=== PATIENT | female | born 1960 | race Caucasian/White ===

== ENCOUNTER 2017-08-22 06:27 | Day surgery (SDC) | payer OTHER ==
[~2017-08-22 06:27] MED LIST: CEFAZOLIN 2 GM/50 ML (PMX) 50 ML IVPB; SOD CHLORIDE 0.9% 1,000 ML IV
[2017-08-22] MEDS ORDERED: EPHEDrine SULFATE 50 MG/5 ML SYG (07:00)
[2017-08-22 07:18] LABS: HEMOGLOBIN 13.9 g/dl (12.0-16.0); MEAN CORPUSCULAR HEMOGLOBIN 33.1 pg (29.0-33.0); MEAN CORPUSCULAR HGB CONC 35.6 g/dl (32.0-37.0); MEAN CORPUSCULAR VOLUME 92.9 fl (82.0-101.0); MEAN PLATELET VOLUME 10.7 fl (7.4-10.4); PLATELET COUNT 229 10^3/UL (140-415); RED CELL DISTRIBUTION WIDTH 11.9 % (11.5-14.5)
[2017-08-22 07:18] LABS: WHITE BLOOD COUNT 6.3 10^3/ul (4.8-10.8)
[2017-08-22 07:23] LABS: ADD MAN DIFF? YES
[2017-08-22] MEDS: INSULIN ASPART [NOVOLOG] 3 ML PEN SC (07:23)
[2017-08-22] MEDS: SOD CHLORIDE 0.9% 1,000 ML IV (07:28)
[2017-08-22 07:45] LABS: ALANINE AMINOTRANSFERASE 23 IU/L (13-69); ALBUMIN 4.8 g/dl (3.3-4.9); ALKALINE PHOSPHATASE 102 IU/L (42-121); ANION GAP 21 (8-16); ASPARTATE AMINO TRANSFERASE 21 IU/L (15-46); BILIRUBIN,INDIRECT 0.2 mg/dl (0-1.1); BILIRUBIN,TOTAL 0.2 mg/dl (0.2-1.3); CARBON DIOXIDE 28 mmol/L (21-31); CHLORIDE 100 mmol/L (97-110); GLUCOSE 274 mg/dl (70-220)
[2017-08-22 07:56] LABS: INR 0.89; PROTIME 12.1 Sec (11.9-14.9); PT RATIO 0.9
[2017-08-22 07:58] LABS: BLOOD UREA NITROGEN 20 mg/dl (7-20); CREATININE 0.48 mg/dl (0.44-1.00); POTASSIUM 3.6 mmol/L (3.5-5.1)
[2017-08-22 08:00] LABS: PARTIAL THROMBOPLASTIN TIME 23.4 Sec (25.0-35.0)
[2017-08-22 08:01] LABS: SODIUM 145 mmol/L (135-144)
[2017-08-22] MEDS ORDERED: MIDAZOLAM 1 MG/ML 2 ML INJ (08:44)
[2017-08-22] MEDS ORDERED: LIDOCAINE 1% (MDV) 20 ML INJ (08:44)
[2017-08-22] MEDS ORDERED: PROPOFOL 20 ML (08:44)
[2017-08-22] MEDS ORDERED: FAMOTIDINE 20 MG INJ (08:51)
[2017-08-22] MEDS ORDERED: ONDANSETRON 4 MG INJ (08:51)
[2017-08-22] MEDS ORDERED: METOCLOPRAMIDE 10 MG INJ (08:51)
[2017-08-22] MEDS ORDERED: DEXAMETHASONE 4 MG/ML 1 ML INJ (08:51)
[2017-08-22] MEDS ORDERED: SCOPOLAMINE 1.5 MG PATCH (08:53)
[2017-08-22] MEDS ORDERED: PHENYLephrine (100 MCG/ML) 5ML SYG (08:59)
[2017-08-22] MEDS ORDERED: CEFAZOLIN 1 GM INJ (08:59)
[2017-08-22] MEDS: LIDOCAINE 1%/EPI 30 ML INJ (09:08)
[2017-08-22 09:38] LABS: BASOPHIL #M 0.1 10^3/ul (0.0-0.0); BASOPHILS % (M) 2 % (0-2); EOSINOPHILS % (M) 20 % (0-7); ERYTHROBLAST% (NRBC) (M) 1 % (0-0); LYMPHOCYTES #M 1.5 10^3/ul (0.8-2.9); LYMPHOCYTES % (M) 24 % (15-51); MONOCYTE #M 0.2 10^3/ul (0.3-0.9); MONOCYTES % (M) 4 % (0-11); PLATELET ESTIMATE NORMAL; SEGMENTED NEUTROPHILS (M) % 50 % (39-77)
== END 2017-08-22 11:58 | disposition home or self-care (01) ==
LOC: SDS 06:27
DX: C44.599 Other specified malignant neoplasm of skin of other part of trunk (principal); E11.9 Type 2 diabetes mellitus without complications
CPT/HCPCS: 11406; 80053; 82962; 85025; 85610; 85730; 87070; 87075; 88307; 93005

== ENCOUNTER 2017-09-22 10:03 | Day surgery (SDC) | payer OTHER ==
[2017-09-22 11:13] LABS: ADD MAN DIFF? NO
[2017-09-22 11:22] LABS: BASOPHILS % 0.3 % (0.0-2.0); EOSINOPHILS # 0.3 10^3/ul (0.0-0.5); EOSINOPHILS % 4.2 % (0.0-7.0); HEMATOCRIT 37.6 % (37.0-47.0); HEMOGLOBIN 13.1 g/dl (12.0-16.0); LYMPHOCYTES # 1.2 10^3/ul (0.8-2.9); LYMPHOCYTES % 17.8 % (15.0-51.0); MEAN CORPUSCULAR HEMOGLOBIN 32.3 pg (29.0-33.0); MEAN CORPUSCULAR HGB CONC 34.8 g/dl (32.0-37.0); MEAN CORPUSCULAR VOLUME 92.6 fl (82.0-101.0); MONOCYTE # 0.5 10^3/ul (0.3-0.9); MONOCYTES % 6.9 % (0.0-11.0); NEUTROPHIL # 4.7 10^3/ul (1.6-7.5); NEUTROPHILS % 70.6 % (39.0-77.0); PLATELET COUNT 218 10^3/UL (140-415); RED BLOOD COUNT 4.06 10^6/ul (4.20-5.40); RED CELL DISTRIBUTION WIDTH 12.1 % (11.5-14.5)
[2017-09-22 11:22] LABS: WHITE BLOOD COUNT 6.6 10^3/ul (4.8-10.8)
[2017-09-22 11:39] LABS: INR 0.93; PROTIME 12.6 Sec (11.9-14.9)
[2017-09-22 11:40] LABS: PARTIAL THROMBOPLASTIN TIME 23.5 Sec (25.0-35.0)
[2017-09-22 11:55] LABS: ALANINE AMINOTRANSFERASE 20 IU/L (13-69); ALBUMIN 4.4 g/dl (3.3-4.9); ALBUMIN/GLOBULIN RATIO 1.41; ALKALINE PHOSPHATASE 98 IU/L (42-121); ANION GAP 18 (8-16); ASPARTATE AMINO TRANSFERASE 21 IU/L (15-46); BILIRUBIN,INDIRECT 0.2 mg/dl (0-1.1); BILIRUBIN,TOTAL 0.2 mg/dl (0.2-1.3); CARBON DIOXIDE 27 mmol/L (21-31); CHLORIDE 102 mmol/L (97-110); GLUCOSE 137 mg/dl (70-220); TOTAL PROTEIN 7.5 g/dl (6.1-8.1)
[2017-09-22 11:59] LABS: BLOOD UREA NITROGEN 16 mg/dl (7-20); CALCIUM 9.9 mg/dl (8.4-10.2); CREATININE 0.42 mg/dl (0.44-1.00); POTASSIUM 3.7 mmol/L (3.5-5.1); SODIUM 143 mmol/L (135-144)
[2017-09-22] MEDS ORDERED: CLINDAMYCIN 600 MG/D5W (PMX) 50 ML IVPB (13:19)
[2017-09-22] MEDS ORDERED: PROPOFOL 20 ML (13:19)
[2017-09-22] MEDS ORDERED: ROCURONIUM 50 MG INJ (13:19)
[2017-09-22] MEDS ORDERED: MIDAZOLAM 1 MG/ML 2 ML INJ (13:20)
[2017-09-22] MEDS ORDERED: DEXAMETHASONE 4 MG/ML 1 ML INJ (14:08)
[2017-09-22] MEDS ORDERED: METOCLOPRAMIDE 10 MG INJ (14:08)
[2017-09-22] MEDS ORDERED: ONDANSETRON 4 MG INJ (14:08)
[2017-09-22] MEDS ORDERED: SCOPOLAMINE 1.5 MG PATCH (14:09)
[2017-09-22] MEDS ORDERED: PHENYLephrine (100 MCG/ML) 5ML SYG (14:19)
[2017-09-22] MEDS ORDERED: SUGAMMADEX SODIUM 200 MG/2 ML VIAL IV (14:43)
[2017-09-22] MEDS ORDERED: hydrALAzine 20 MG INJ IV (15:30)
[2017-09-22] MEDS ORDERED: EPHEDrine SULFATE 50 MG/5 ML SYG IV (15:30)
[2017-09-22] MEDS ORDERED: ONDANSETRON 4 MG INJ IV (15:30)
[2017-09-22] MEDS ORDERED: DIPHENHYDRAMINE 50 MG INJ IV (15:30)
[2017-09-22] MEDS ORDERED: METOCLOPRAMIDE 10 MG INJ IV (15:30)
[2017-09-22] MEDS ORDERED: LABETALOL HCL 20MG INJ IV (15:30)
[2017-09-22] MEDS ORDERED: MEPERIDINE 25 MG INJ IV (15:30)
[2017-09-22] MEDS ORDERED: OXYCODONE/ACETAMINOPHEN (5/325) TAB PO ×2 (15:30)
[2017-09-22] MEDS ORDERED: FENTAnyl 50 MCG/ML VIAL IV ×3 (15:30)
[2017-09-22] MEDS ORDERED: HYDROmorphONE (0.2 MG/ML) 10ML SYG IV ×3 (15:30)
== END 2017-09-22 17:10 | disposition home or self-care (01) ==
LOC: SDS 10:03
DX: C50.912 Malignant neoplasm of unspecified site of left female breast (principal); E11.9 Type 2 diabetes mellitus without complications
CPT/HCPCS: 14000; 80053; 82962; 84703; 85025; 85610; 85730; 88307

== ENCOUNTER 2018-11-06 22:59 | Inpatient (IN) | payer OTHER ==
[2018-11-07 00:51] LABS: ADD MAN DIFF? NO
[2018-11-07 00:56] LABS: ABNORMAL IP MESSAGE 1; BASOPHILS % 0.2 % (0.0-2.0); HEMATOCRIT 28.3 % (37.0-47.0); HEMOGLOBIN 9.4 g/dl (12.0-16.0); LYMPHOCYTES # 0.6 10^3/ul (0.8-2.9); LYMPHOCYTES % 11.2 % (15.0-51.0); MEAN CORPUSCULAR HEMOGLOBIN 28.8 pg (29.0-33.0); MEAN CORPUSCULAR HGB CONC 33.2 g/dl (32.0-37.0); MEAN CORPUSCULAR VOLUME 86.8 fl (82.0-101.0); MEAN PLATELET VOLUME 10.4 fl (7.4-10.4); MONOCYTE # 0.1 10^3/ul (0.3-0.9); MONOCYTES % 2.2 % (0.0-11.0); NEUTROPHIL # 4.3 10^3/ul (1.6-7.5); NEUTROPHILS % 86.2 % (39.0-77.0); PLATELET COUNT 279 10^3/UL (140-415); RED BLOOD COUNT 3.26 10^6/ul (4.20-5.40); RED CELL DISTRIBUTION WIDTH 13.7 % (11.5-14.5)
[2018-11-07 00:56] LABS: WHITE BLOOD COUNT 4.9 10^3/ul (4.8-10.8)
[2018-11-07 00:58] LABS: POSITIVE DIFF @See below
[2018-11-07 01:11] LABS: ALANINE AMINOTRANSFERASE 27 IU/L (13-69); ALBUMIN/GLOBULIN RATIO 1.37; ALKALINE PHOSPHATASE 141 IU/L (42-121); ANION GAP 11 (5-13); ASPARTATE AMINO TRANSFERASE 39 IU/L (15-46); BILIRUBIN,INDIRECT 0.3 mg/dl (0-1.1); BILIRUBIN,TOTAL 0.3 mg/dl (0.2-1.3); BLOOD UREA NITROGEN 16 mg/dl (7-20); CALCIUM 9.3 mg/dl (8.4-10.2); CARBON DIOXIDE 26 mmol/L (21-31); CHLORIDE 93 mmol/L (97-110); Estimated GFR > 60 mL/min (>60); POTASSIUM 4.7 mmol/L (3.5-5.1); SODIUM 130 mmol/L (135-144); TOTAL PROTEIN 6.9 g/dl (6.1-8.1)
[2018-11-07 01:13] LABS: INR 0.89; PROTIME 12.2 Sec (11.9-14.9)
[2018-11-07 01:20] LABS: GLUCOSE 702 mg/dl (70-220)
[2018-11-07 01:21] LABS: TROPONIN-I < 0.012 ng/ml (0.000-0.120)
[2018-11-07] MEDS: SOD CHLORIDE 0.9% 1,000 ML IV (02:06)
[2018-11-07] MEDS: INSULIN REGULAR, HUMAN 100 UNIT/1 ML 3ML VIAL SC (02:07)
[2018-11-07] MEDS ORDERED: ONDANSETRON 4 MG INJ IV ×2 (02:30→03:00)
[2018-11-07] MEDS ORDERED: ACETAMINOPHEN 325 MG TAB PO ×2 (02:30→03:00)
[2018-11-07] MEDS: SOD CHLORIDE 0.45% 1,000 ML IV ×2 (02:37→23:19)
[2018-11-07] MEDS ORDERED: GLUCAGON 1 MG INJ IM (03:00)
[2018-11-07] MEDS ORDERED: MAGNESIUM HYDROXIDE 30ML CUP PO (03:00)
[2018-11-07] MEDS ORDERED: NITROGLYCERIN (SL) 0.4 MG TAB SL (03:00)
[2018-11-07] MEDS ORDERED: ALBUTEROL/IPRATROPIUM (NEB) 3 ML AMP HHN (03:00)
[2018-11-07] MEDS ORDERED: DEXTROSE 50% 50 ML SYRINGE IV ×2 (03:00)
[2018-11-07] MEDS ORDERED: DOCUSATE SODIUM 100 MG CAP PO (03:00)
[2018-11-07] MEDS ORDERED: LORAZEPAM 2 MG INJ IV (03:00)
[2018-11-07] MEDS ORDERED: HYDROCODONE/APAP (5/325) TAB PO (03:00)
[2018-11-07] MEDS ORDERED: hydrALAzine 20 MG INJ IV (03:00)
[2018-11-07] MEDS ORDERED: GLUCOSE GEL 15 GRAM TUBE PO ×2 (03:00)
[2018-11-07] MEDS ORDERED: morphine 2 MG INJ IV (03:00)
[2018-11-07] MEDS ORDERED: NACL 0.9% 3 ML SYG IV (03:00)
[2018-11-07] MEDS ORDERED: GLUCOSE GEL 15 GRAM TUBE BUCCAL (03:00)
[2018-11-07 04:46] LABS: FREE T4 (FREE THYROXINE) 1.59 ng/dl (0.64-1.79)
[2018-11-07] MEDS: INSULIN ASPART [NOVOLOG] 3 ML PEN SC ×5 (05:23→21:41)
[2018-11-07 06:07] LABS: INR 0.99; PARTIAL THROMBOPLASTIN TIME 23.5 Sec (23.0-35.0); PROTIME 13.2 Sec (11.9-14.9)
[2018-11-07] MEDS: PANTOPRAZOLE (EC) 40 MG TAB PO (06:27)
[2018-11-07] MEDS ORDERED: HEPARIN 5,000 UNIT/1 ML VIAL SC (09:00)
[2018-11-07] MEDS: GABAPENTIN 100 MG CAP PO (09:15)
[2018-11-07] MEDS: INSULIN GLARGINE [LANTus] (100 UNITS/ML) SYG SC (09:28)
[2018-11-07] MEDS: ACCU-CHEK XX ×4 (11:30→20:00)
[2018-11-07] MEDS: GABAPENTIN 300 MG CAP PO ×2 (12:39→21:00)
[2018-11-07 13:40] LABS: IRON 58 ug/dl (35-150)
[2018-11-07 13:49] LABS: % IRON SATURATION 19 % SAT (22-52); TOTAL IRON BINDING CAPACITY 310 ug/dl (241-421)
[2018-11-07 14:13] LABS: FERRITIN 35.2 ng/ml (11.1-264.0)
[2018-11-07] MEDS ORDERED: [UNRECOGNIZED DRUG - OTHER] SQ (21:00)
[2018-11-07] MEDS ORDERED: INSULIN GLARGINE HUM REC ANLOG 12 UNIT SQ (21:00)
[2018-11-08] MEDS: HYDROCODONE/APAP (10/325) TAB PO ×3 (00:54→09:22)
[2018-11-08] MEDS: INSULIN ASPART [NOVOLOG] 3 ML PEN SC ×2 (01:09→05:37)
[2018-11-08] MEDS: ACCU-CHEK XX (02:00)
[2018-11-08] MEDS: PANTOPRAZOLE (EC) 40 MG TAB PO (05:28)
[2018-11-08] MEDS ORDERED: INSULIN GLARGINE [LANTus] (100 UNITS/ML) SYG SC (08:00)
[2018-11-08] MEDS: PATIENT'S OWN MEDICATION PO (09:04)
== END 2018-11-08 11:50 | disposition home or self-care (01) | DRG 599 ==
LOC: E/R 22:59 → 6WM 11-07 02:11
DX: C50.912 Malignant neoplasm of unspecified site of left female breast (principal); E11.65 Type 2 diabetes mellitus with hyperglycemia; Z79.899 Other long term (current) drug therapy; Z17.1 Estrogen receptor negative status [ER-]; Z98.84 Bariatric surgery status; D50.9 Iron deficiency anemia, unspecified
CPT/HCPCS: 71250; 80053; 82728; 82962; 83540; 84439; 84484; 85025; 85610; 85730; 93005; 96372; 99285-25